=== PATIENT | female | born 1965 | race Caucasian/White ===

== ENCOUNTER → 2017-08-04 | Outpatient (CLI) | payer OTHER ==
[2017-08-07 10:32] LABS: HPV Genotype 16 Not Detected (NOTDET); HPV Genotype 18 Not Detected (NOTDET)
[2017-08-07 13:42] LABS: HPV High Risk Other Not Detected (NOTDET)
== END | disposition home or self-care (01) ==
LOC: LAB SHORT 11:42 → LAB 11:42
PROVIDERS: Nurse Practitioner Obstetrics & Gynecology
DX: Z01.419 Encounter for gynecological examination (general) (routine) without abnormal findings (principal)
CPT/HCPCS: 87624; G0123

== ENCOUNTER → 2018-08-10 | Outpatient (CLI) | payer OTHER ==
[2018-08-11 09:54] LABS: Candida species (DNA Probe) Negative (NEGATIVE); G. vaginalis (DNA Probe) Positive (NEGATIVE); T. vaginalis (DNA Probe) Negative (NEGATIVE)
== END | disposition home or self-care (01) ==
LOC: LAB SHORT 10:17 → LAB 10:17
PROVIDERS: Nurse Practitioner Obstetrics & Gynecology
DX: N76.0 Acute vaginitis (principal)
CPT/HCPCS: 87480; 87510; 87660

== ENCOUNTER → 2019-07-15 | Outpatient (CLI) | payer OTHER | END | disposition home or self-care (01) | LOC: LAB SHORT 14:10 → LAB 14:10 | DX: R30.9 Painful micturition, unspecified (principal) | CPT/HCPCS: 87077; 87086; 87186 ==

== ENCOUNTER 2020-09-28 09:20 | Day surgery (SDC) | payer OTHER ==
[~2020-09-28] VITALS: Ht 167.6 cm; Wt 72.8 kg
[~2020-09-28 09:20] MED LIST: Estrace Vagin42.5 GM VAG; THERA-D2000 UNIT PO
== END 2020-09-28 11:47 | disposition home or self-care (01) ==
LOC: ORSCSDS 09:20
PROVIDERS: Surgery
PROC: 0DBM8ZX Excision of Descending Colon, Via Natural or Artificial Opening Endoscopic, Diagnostic (ICD-10-PCS; principal; 2020-09-28 10:30)
PROC: 0DBP8ZX Excision of Rectum, Via Natural or Artificial Opening Endoscopic, Diagnostic (ICD-10-PCS; principal; 2020-09-28 10:30)
DX: K62.89 Other specified diseases of anus and rectum (principal); Z86.010 Personal history of colon polyps; D12.4 Benign neoplasm of descending colon; K62.1 Rectal polyp; K21.9 Gastro-esophageal reflux disease without esophagitis; Z79.899 Other long term (current) drug therapy
CPT/HCPCS: 88305; J2704; J7120

== ENCOUNTER → 2021-05-30 | Outpatient (CLI) | payer OTHER | END | disposition home or self-care (01) | LOC: PLD 15:44 → LAB SHORT 15:44 | DX: D48.5 Neoplasm of uncertain behavior of skin (principal) | CPT/HCPCS: 88305 ==

== ENCOUNTER → 2022-07-02 | Outpatient (CLI) | payer OTHER ==
[2022-07-02 12:41] LABS: BASOPHILS ABSOLUTE AUTO 0.07 K/mm3 (0.00-0.23); BASOPHILS PERCENT AUTO 1 % (0-2); EOSINOPHILS PERCENT AUTO 1 % (0-6); Hematocrit 49.2 % (33.0-51.0); IMMATURE GRAN ABSOLUTE AUTO 0.03 K/mm3 (0.00-0.10); IMMATURE GRAN PERCENT AUTO 0 % (0-1); LYMPHOCYTES ABSOLUTE AUTO 1.45 K/mm3 (0.84-5.20); LYMPHOCYTES PERCENT AUTO 16 % (21-46); MONOCYTES PERCENT AUTO 7 % (4-13); Mean Corpuscular HGB 31.5 pg (26.0-34.0); Mean Corpuscular HGB Conc 34.6 g/dL (31.5-36.5); Mean Corpuscular Volume 91 fL (80-100); Mean Platelet Volume 9.7 fL (9.1-12.4); NEUTROPHILS PERCENT AUTO 75 % (41-73); Platelet Count 272 K/mm3 (150-400); RDW Coefficient Variation 12.4 % (11.7-14.2); RDW Standard Deviation 41.1 fL (35.1-46.3); White Blood Cell Count 8.95 K/mm3 (4.00-11.30)
[2022-07-02 13:08] LABS: Albumin, Blood 4.3 g/dL (3.4-5.0); Albumin/Globulin Ratio 1.2 (0.8-1.8); Bilirubin, Total 0.3 mg/dL (0.1-1.0); Bun/Creatinine Ratio 17.7 (12.0-20.0); Calcium, Blood 9.9 mg/dL (8.5-10.1); Creatinine, Blood 0.96 mg/dL (0.40-1.00); Globulin, Blood 3.7 g/dL (2.2-4.0); Magnesium, Blood 2.1 mg/dL (1.6-2.4)
[2022-07-02 13:41] LABS: Potassium, Blood 4.8 mmol/L (3.5-5.5)
== END | disposition home or self-care (01) ==
LOC: LAB 12:33 → LAB SHORT 12:33
PROVIDERS: Emergency Medicine
DX: R00.2 Palpitations (principal)
CPT/HCPCS: 80053; 83735; 83880; 84484; 85025

== ENCOUNTER → 2022-11-15 | Outpatient (CLI) | payer OTHER ==
[2022-11-19 13:10] LABS: HPV 16 Negative (Negative); HPV 18 Negative (Negative); HPV OTHER HR TYPES Negative (Negative)
== END | disposition home or self-care (01) ==
LOC: LAB SHORT 16:45 → LAB 16:45
PROVIDERS: Obstetrics & Gynecology
DX: Z01.419 Encounter for gynecological examination (general) (routine) without abnormal findings (principal)
CPT/HCPCS: 87624; G0145

== ENCOUNTER 2024-02-11 10:22 | Day surgery (SDC) | payer OTHER | END 2024-02-12 00:01 | disposition home or self-care (01) | LOC: WOUND 10:22 | DX: T81.30XA Disruption of wound, unspecified, initial encounter (principal); C80.1 Malignant (primary) neoplasm, unspecified; Z88.1 Allergy status to other antibiotic agents | CPT/HCPCS: G0463 ==

== ENCOUNTER 2024-02-18 02:57 | Day surgery (SDC) | payer OTHER | END 2024-02-18 23:00 | disposition home or self-care (01) | LOC: WOUND 02:57 | DX: T81.31XD Disruption of external operation (surgical) wound, not elsewhere classified, subsequent encounter (principal); M79.7 Fibromyalgia | CPT/HCPCS: G0463 ==

== ENCOUNTER 2024-02-25 03:33 | Day surgery (SDC) | payer OTHER ==
[2024-02-25] MEDS ORDERED: Lidocaine HCl 4% Cream 5 GM ONE (09:52)
== END 2024-02-25 23:00 | disposition home or self-care (01) ==
LOC: WOUND 03:33
DX: T81.31XD Disruption of external operation (surgical) wound, not elsewhere classified, subsequent encounter (principal)
CPT/HCPCS: A9270; G0463

== ENCOUNTER 2024-03-10 00:59 | Day surgery (SDC) | payer OTHER | END 2024-03-10 23:08 | disposition home or self-care (01) | LOC: WOUND 00:59 | DX: T81.30XD Disruption of wound, unspecified, subsequent encounter (principal); C80.1 Malignant (primary) neoplasm, unspecified; Y83.8 Other surgical procedures as the cause of abnormal reaction of the patient, or of later complication, without mention of misadventure at the time of the procedure; D44.0 Neoplasm of uncertain behavior of thyroid gland; E04.2 Nontoxic multinodular goiter | CPT/HCPCS: 76536; G0463 ==

== ENCOUNTER 2024-03-17 03:36 | Day surgery (SDC) | payer OTHER | END 2024-03-17 23:00 | disposition home or self-care (01) | LOC: WOUND 03:36 | DX: T81.30XD Disruption of wound, unspecified, subsequent encounter (principal); C80.1 Malignant (primary) neoplasm, unspecified | CPT/HCPCS: G0463 ==

== ENCOUNTER 2024-03-24 03:49 | Day surgery (SDC) | payer OTHER | END 2024-03-24 23:00 | disposition home or self-care (01) | LOC: WOUND 03:49 | DX: T81.31XA Disruption of external operation (surgical) wound, not elsewhere classified, initial encounter (principal); C80.1 Malignant (primary) neoplasm, unspecified | CPT/HCPCS: G0463 ==

== ENCOUNTER 2024-03-31 05:21 | Day surgery (SDC) | payer OTHER | END 2024-03-31 23:00 | disposition home or self-care (01) | LOC: WOUND 05:21 | DX: T81.31XD Disruption of external operation (surgical) wound, not elsewhere classified, subsequent encounter (principal); M79.7 Fibromyalgia | CPT/HCPCS: G0463 ==